=== PATIENT | male | born 1955 | race Caucasian/White ===

== ENCOUNTER → 2023-07-08 07:38 | Outpatient (CLI) | payer MEDICARE, SELFPAY ==
--- NOTE | 2023-07-08 07:41 | CA_ITS ---
FINAL REPORT CLINICAL HISTORY: HTN COMPARISON: None FINDINGS: Aorta velocity: 94 cm/sec Right kidney: 11.6 cm. There is a 1.6 cm upper pole right renal cyst present. No hydronephrosis is identified. Right intrarenal RI: 0.63 Right renal artery velocity: 110 cm/sec. Right RAR (Renal artery-Aortic Ratio): 1.2 Left Kidney: 12.4 cm. No evidence of renal mass or hydronephrosis. Left intrarenal RI: 0.67 Left renal artery velocity: 65 cm/sec. Left RAR (Renal Artery-Aortic Ratio): 0.7 Note is made of a 6 x 6.4 cm right hepatic cyst. IMPRESSION: No evidence of significant renal artery stenosis. 6 x 6.4 cm right hepatic cyst. 1.6 cm right renal upper pole cyst present. CT angiogram or postcontrast MR angiogram would be more sensitive for evaluation of possible renal artery stenosis. Reviewed, Interpreted and Dictated by Brad Michaels MD Transcribed by Terra Cu[facility]ra Authenticated and [facility]
--- NOTE | 2023-07-08 07:43 | CA_ITS ---
APPROVED REPORT EXAM: Comprehensive 2D, Doppler, and color-flow Echocardiogram [employer] Director: Marleni Barber RVT Ht: 6 ft 4 in Wt: 235lbs BSA: 2.37 BP: 210/110 mmHg Indications: HTN 2D Dimensions LA Volume 76.10 mL LA Volume Index 32.11 mL/m2 (M/F) 16-34 M-Mode Dimensions RVDd 2.81 cm (0.9-2.6) LA Diam 3.90 cm (1.9-4.0) LVDd 5.22 cm (3.5-5.7) LVDs 3.48 cm (3.5-5.7) IVSd 1.65 cm (0.6-1.1) PWd 0.71 cm (0.6-1.1) EF (Teich) 61.60% FS 33.30% EDV (Teich) 130.70 mL TAPSE 2.20 (<1.7) ESV (Teich) 50.20 mL LV Diastology E Decel Time 233 (160-240 msec) E/A Ratio 0.8 MED A' 9.00 cm/s LAT A' 7.90 cm/s Aortic Valve NICHOLAS Index 1.37 cm2/m2 AoV Peak Damir. 139.0 (50-130 cm/s) AO Peak GR. 7.80 mmHg AO Mean GR. 4.30 (<5 mmHg) AO VTI 32.5 (18-25 cm) NICHOLAS (VTI) 3.34 (2.5-4.5 cm2) Mitral Valve MV E Max Damir. 67.0 (40-130 cm/s) MV A Velocity 87.0 (40-130 cm/s) E/A Ratio 0.78 MV PHT 68.0 ms Pulmonary Valve PV Peak Velocity 74.0 (50-150 cm/s) Tricuspid Valve TR P. Velocity 236.00 cm/s RAP Estimate 10.00 mmHg RVSP 32.20 mmHg Left Ventricle The left ventricle is normal size. The left ventricular systolic function is normal. The left ventricular ejection fraction is within the normal range. There is increased LV wall thickness. Proximal septal thickening is noted. There is no LVOT gradient at rest or with Valsalva. There is normal LV segmental wall motion. Diastolic function is indeterminate. LVEF is 55%. Right Ventricle The right ventricle is mildly dilated. The right ventricular systolic function is normal. Atria Left atrium is moderately dilated. Right atrium is mildly dilated. There is no Doppler evidence of interatrial shunt. Aortic Valve The aortic valve opens well. There is no aortic valvular stenosis. No aortic regurgitation is present. Mitral Valve The mitral valve is normal in structure. No evidence of mitral valve stenosis. Trace mitral regurgitation. Tricuspid Valve The tricuspid valve leaflets are thin and pliable. Trace tricuspid regurgitation. There is insufficient TR jet to estimate RVSP. Pulmonic Valve The pulmonary valve is normal in structure. Trace pulmonic regurgitation. Great Vessels The aortic root is normal in size. The ascending aorta is normal in size. IVC is normal in size and collapses >50% with inspiration. Pericardium There is no pericardial effusion. Other Information Study Quality: Fair Conclusion Normal biventricular systolic function. Mild RV dilation. Mild biatrial dilation. No significant valvular stenosis or regurgitation. Electronically signed by : Vianca Lombardo MD 07/08/2023 22:25:06
== END ==
PROVIDERS: PCP Internal Medicine Adolescent Medicine; Visit Provider Internal Medicine Adolescent Medicine
DX: I10 Essential (primary) hypertension (principal); R94.31 Abnormal electrocardiogram [ECG] [EKG]
CPT/HCPCS: 93306; 93976

== ENCOUNTER → 2023-07-18 09:53 | Outpatient (CLI) | payer MEDICARE, SELFPAY | PROVIDERS: PCP Internal Medicine Adolescent Medicine; Visit Provider Internal Medicine Adolescent Medicine | DX: G47.33 Obstructive sleep apnea (adult) (pediatric) (principal); G47.36 Sleep related hypoventilation in conditions classified elsewhere; I10 Essential (primary) hypertension | CPT/HCPCS: G0399 ==